=== PATIENT | male | born 1990 | race Caucasian/White ===

== ENCOUNTER 2022-01-30 09:38 | Emergency (ER) | payer BC, SELFPAY ==
[2022-01-30 09:54] VITALS: BP 117/83; PULSE 84; RESP 16; TEMP 37.1; O2SAT 99
--- NOTE | 2022-01-30 10:18 | ED.GENADULT ---
HPI - General Adult General Chief complaint: Medical Clearance Stated complaint: HPB Time Seen by Provider: 01/30/22 10:15 Source: patient, RN notes reviewed and old records reviewed Mode of arrival: ambulatory Limitations: no limitations History of Present Illness HPI narrative: 31-year-old male who presents to 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 Patient denies any headaches, no shortness of breath or any chest pain, denies any visual disturbances does wear glasses. He has appointment with his medical doctor on Thursday to discuss his blood pressure and possible see if he thinks he should be on medication for his blood pressure. Patient does smoke cigarettes of 1/2-1 pack per day and he is obese with BMI of 40. MD complaint: Blood pressure evaluation Associated symptoms: denies other symptoms Treatments prior to arrival: none Related Data Home Medications Medication Instructions Recorded Confirmed No Home Medications 01/30/22 01/30/22 Allergies Allergy/AdvReac Type Severity Reaction Status Date / Time No Known Allergies Allergy Unverified 06/27/20 14:17 PEPPERS Allergy Mild Uncoded 06/27/20 14:17 Review of Systems Review of Systems: CONSTITUTIONAL: Denies fever, chills, or sweats. EYES: Denies visual changes, redness, or discharge. ENT: Denies rhinorrhea, congestion, sore throat, or otalgia. CARDIOVASCULAR: Denies chest pain, palpitations, or edema. RESPIRATORY: Denies cough or dyspnea. GASTROINTESTINAL: Denies abdominal pain, nausea, vomiting, or diarrhea. GENITOURINARY: Denies dysuria or hematuria. SKIN: Denies rash or itching. MUSCULOSKELETAL: Denies back pain, joint pain, or myalgia. NEUROLOGIC: Denies headache, numbness, or weakness. PSYCHIATRIC: Denies anxiety or depression. All systems reviewed & are unremarkable except as noted in HPI and below PMFSH Past Medical History Medical History (Updated 01/30/22 @ 10:44 by Sheyla Choi NP) Elevated blood pressure reading without diagnosis of hypertension Fracture of right ankle Gout Surgical History Surgical History History of placement of ear tubes Family History Family History Grandparent Acute myocardial infarction Social History Social History (Updated 01/30/22 @ 22:12 by Sheyla Choi NP) Smoking status: Current every day smoker Tobacco type: cigarettes Alcohol intake: current Alcohol use details: social Substance use: never Living arrangements: with family Gender identity (if verbalized by the patient): Male Comments At time of signature, agree with nursing past medical, surgical, social and family history. There is no relevant family history pertinent to the presenting complaint Exam Narrative: GENERAL: Well-appearing, well-nourished, obese and in no acute distress. HEAD: Normocephalic, atraumatic. EYES: PERRLA and EOMI. ENT: Nares clear, no rhinorrhea or epistaxis. Mucous membranes moist.TM's normal with good light reflex, throat normal with no tonsil enlargement NECK: Supple.no lymphadenopathy CHEST: Clear to auscultation. No respiratory distress.SAO2 99% on room air HEART: Regular rate and rhythm. No murmur heard. Normal peripheral pulses. ABDOMEN: Soft, nontender, nondistended, normal active bowel sounds. EXTREMITIES: Normal range of motion. No edema noted SKIN: Warm, dry, no rash. NEURO: No focal deficits. Alert and oriented x3. Course Course Level of Care: Express Care Visit Vital Signs Vital signs: Vital Signs Temperature 37.1 C 01/30/22 09:54 Pulse Rate 84 01/30/22 09:54 Respiratory Rate 16 01/30/22 09:54 Blood Pressure 117/83 01/30/22 09:54 Pulse Oximetry
== END 2022-01-30 10:50 | disposition home or self-care (01) ==
PROVIDERS: Emergency Provider Registered Nurse; PCP Family Medicine
DX: Z01.30 Encounter for examination of blood pressure without abnormal findings (principal); M10.9 Gout, unspecified; F17.210 Nicotine dependence, cigarettes, uncomplicated
CPT/HCPCS: 99211; G0463

== ENCOUNTER 2022-03-05 10:06 | Emergency (ER) | payer BC, SELFPAY ==
[2022-03-05 10:18] VITALS: BP 127/69; PULSE 96; RESP 18; TEMP 36.3; O2SAT 98
--- NOTE | 2022-03-05 10:20 | ED.EAR ---
HPI - Ear Problem General Chief complaint: Ear Stated complaint: lt ear discomfort Time Seen by Provider: 03/05/22 10:20 Source: patient Mode of arrival: ambulatory Limitations: no limitations History of Present Illness HPI Narrative: 31-year-old male presents with complaint of left ear pain since yesterday. Reports that he has had intermittent dizziness since pain started. Denies all URI symptoms. Also reports over the last week he has had nausea, vomiting and diarrhea that is improving. Is still having some nausea. States his son and ex- are both sick with the GI bug. No recent fever. Systems reviewed and negative except as noted above. Related Data Home Medications Medication Instructions Recorded Confirmed lisinopril-hydrochlorothiazide 1 tablet PO DAILY 03/05/22 03/05/22 Allergies Allergy/AdvReac Type Severity Reaction Status Date / Time No Known Allergies Allergy Verified 03/05/22 10:23 PEPPERS Allergy Mild Uncoded 03/05/22 10:23 Review of Systems Review of Systems: CONSTITUTIONAL: Denies fever, chills, or sweats. EYES: Denies visual changes, redness, or discharge. ENT: Denies rhinorrhea, congestion, sore throat. Reports left ear pain. CARDIOVASCULAR: Denies chest pain, palpitations, or edema. RESPIRATORY: Denies cough or dyspnea. GASTROINTESTINAL: Denies abdominal pain. Reports nausea, vomiting, or diarrhea. GENITOURINARY: Denies dysuria or hematuria. SKIN: Denies rash or itching. MUSCULOSKELETAL: Denies back pain, joint pain, or myalgia. NEUROLOGIC: Denies headache, numbness, or weakness. PSYCHIATRIC: Denies anxiety or depression. All other systems reviewed are negative, except as documented in HPI. [facility] Past Medical History Medical History (Updated 03/05/22 @ 10:30 by Andreia Dean NP) Elevated blood pressure reading without diagnosis of hypertension Fracture of right ankle Gout Surgical History Surgical History History of placement of ear tubes Family History Family History Grandparent Acute myocardial infarction Social History Social History (Updated 01/30/22 @ 22:12 by Sheyla Choi NP) Smoking status: Current every day smoker Tobacco type: cigarettes Alcohol intake: current Alcohol use details: social Substance use: never Gender identity (if verbalized by the patient): Male Comments At time of signature, agree with nursing past medical, surgical, social and family history. There is no relevant family history pertinent to the presenting complaint. Exam Narrative: GENERAL: This is a well-nourished, well-developed patient, in no apparent distress. HEAD: normocephalic, atraumatic. EYES: PERRL. Sclera clear/white. Vision is grossly intact. EARS: External ears normal, auditory canals clear and without drainage. TM normal. Left TM erythematous and retracted. No TM perforation. NOSE: External nose normal with no obvious nasal discharge, nares without redness, no rhinorrhea. THROAT: Mucous membranes moist, posterior pharynx clear. NECK: Neck supple, non-tender without lymphadenopathy, masses or thyromegaly. CARDIOVASCULAR: Regular rate and rhythm without murmurs, gallops, or rubs. RESPIRATORY: Clear to auscultation. Breath sounds equal bilaterally. No wheezes, rales, or rhonchi. GASTROINTESTINAL: Abdomen soft, non-tender, nondistended. Bowel sounds are active. No hepato-splenomegaly, or palpable masses. No guarding. SKIN: warm, Dry, intact with no suspicious lesions or rash, good texture and turgor. NEURO: awake, alert, and oriented to person, place and time. There were no obvious focal neurologic abnormalities. EXTREMITIES: Normal range of motion all extremities. . Course Course Level of Care: Express Care Visit Vital Signs Vital signs: Vital Signs Temperature 36.3 C L 03/05/22 10:18 Pulse Rate 96 03/05/22 10:18 Respiratory Ra
== END 2022-03-05 10:32 | disposition home or self-care (01) ==
PROVIDERS: Emergency Provider Nurse Practitioner Family; PCP Family Medicine
DX: H66.92 Otitis media, unspecified, left ear (principal); M10.9 Gout, unspecified
CPT/HCPCS: 99213; G0463

== ENCOUNTER 2022-04-10 14:41 | Outpatient (CLI) | payer BC, SELFPAY ==
[2022-04-10 15:49] LABS: Hemoglobin A1C 5.9 % (<5.7)
== END 2022-04-10 14:42 | disposition home or self-care (01) ==
LOC: ANHLAB 14:44
PROVIDERS: PCP Family Medicine; Visit Provider Family Medicine
DX: Z13.1 Encounter for screening for diabetes mellitus (principal)
CPT/HCPCS: 36415; 83036

== ENCOUNTER 2023-03-23 09:17 | Emergency (ER) | payer BC, SELFPAY ==
[2023-03-23 09:27] VITALS: BP 148/99; PULSE 79; RESP 18; TEMP 36.6; O2SAT 97
--- NOTE | 2023-03-23 09:30 | ED.EAR ---
HPI - Ear Problem General Chief complaint: Ear Stated complaint: lt ear pain Time Seen by Provider: 03/23/23 09:33 Source: patient Mode of arrival: ambulatory Limitations: no limitations History of Present Illness HPI Narrative: 32 y/o male presented for c/o left ear pain, onset last night. Also reports he developed nasal congestion last night which he relates to allergies. Endorses hearing is 'muffled' and states he may have had drainage from the ear. Pain is rated 7-10/10. Reports the pain has spread across forehead as a headache. Denies tinnitus or dizziness, n/v/d/f/c. Patient has not taken meds [employer] for pain. MD Complaint: ear pain Related Data Home Medications Medication Instructions Recorded Confirmed lisinopril 20 1 tablet PO DAILY 03/05/22 03/23/23 mg-hydrochlorothiazide 25 mg tablet Allergies Allergy/AdvReac Type Severity Reaction Status Date / Time capsaicin Allergy Unknown Verified 03/23/23 09:32 PEPPERS Allergy Mild Unknown Uncoded 03/23/23 09:32 Review of Systems Review of Systems: CONSTITUTIONAL: Denies malaise, chills, or fever. EYES: Denies visual changes, redness, or discharge. ENT: Denies sore throat. Reports ear pain, rhinorrhea, congestion CARDIOVASCULAR: Denies chest pain, palpitations, or edema. RESPIRATORY: Denies cough or dyspnea. GASTROINTESTINAL: Denies abdominal pain, nausea, vomiting, diarrhea SKIN: Denies rash or itching. MUSCULOSKELETAL: Denies myalgia. NEUROLOGIC: Reports headache. All systems reviewed & are unremarkable except as noted in HPI and below PMFSH Past Medical History Medical History Elevated blood pressure reading without diagnosis of hypertension Fracture of right ankle Gout Surgical History Surgical History History of placement of ear tubes Family History Family History Grandparent Acute myocardial infarction Social History Social History Smoking status: Current every day smoker Tobacco type: cigarettes Alcohol intake: current Alcohol use details: social Substance use: never Living arrangements: with family Gender identity (if verbalized by the patient): Male Comments At time of signature, agree with nursing past medical, surgical, social and family history. There is no relevant family history pertinent to the presenting complaint Exam Narrative: GENERAL: mildly ill-appearing, no acute distress. HEAD: Normocephalic EYES: PERRLA, conjunctivae clear ENT: Nares clear. Mucous membranes moist. Right TM mildly erythematous with dull light reflex; Left canal erythematous and swollen, not stenotic, mild drainage. Unable to fully visualize TM r/t swelling; visualized portion appears dull. Left tragal tenderness. NECK: Supple. No lymphadenopathy CHEST: Clear to auscultation, breath sounds equal. No wheezing, rhonchi, rales, or stridor. No respiratory distress, speaks in full sentences. HEART: Regular rate and rhythm. No murmur heard. SKIN: Warm, dry, no rash. NEURO: Alert and oriented x3. PSYCH: Normal mood and affect Course Course Emergency Course: Patient is aware of diagnosis, understands and agrees to treatment plan. Anticipatory guidance given. Patient agrees to follow-up as directed and is aware of reasons to seek care at the emergency department. Portions of this record may have been created with voice recognition software Level of Care: Express Care Visit Vital Signs Vital signs: Vital Signs Temperature 97.8 F 03/23/23 09:27 Pulse Rate 79 03/23/23 09:27 Respiratory Rate 18 03/23/23 09:27 Blood Pressure 148/99 H 03/23/23 09:27 Pulse Oximetry 97 03/23/23 09:27 Oxygen Delivery Room Air 03/23/23 09:27 Temperature 97.8 F 03/23/23 09:27 Pulse Rate 79 03/23/23 09:27 Respirator
== END 2023-03-23 09:47 | disposition home or self-care (01) ==
PROVIDERS: Emergency Provider Nurse Practitioner Family; PCP Family Medicine
DX: H60.92 Unspecified otitis externa, left ear (principal); R03.0 Elevated blood-pressure reading, without diagnosis of hypertension; F17.210 Nicotine dependence, cigarettes, uncomplicated; M10.9 Gout, unspecified
CPT/HCPCS: 99213; G0463

== ENCOUNTER 2024-09-26 08:00 | Emergency (ER) | payer BC, SELFPAY ==
[2024-09-26 08:13] VITALS: BP 149/96; PULSE 77; RESP 18; TEMP 36.3; O2SAT 97
--- NOTE | 2024-09-26 08:28 | ED.URI ---
HPI - URI/Sore Throat General Chief Complaint: Upper Respiratory Infection Stated Complaint: LT Ear / congestion / cough / fever Time Seen by Provider: 09/26/24 08:20 Source: patient and RN notes reviewed Mode of arrival: ambulatory Limitations: no limitations History of Present Illness HPI Narrative: Patient presents today complaining of a 3 day history of chest congestion, mild cough, left ear clogging. Denies fever or sore throat. He has been taking DayQuil with mild relief and is currently pain-free Related Data Home Medications Medication Instructions Recorded Confirmed lisinopril 20 1 tablet PO DAILY 03/05/22 09/26/24 mg-hydrochlorothiazide 25 mg tablet Allergies Allergy/AdvReac Type Severity Reaction Status Date / Time capsaicin AdvReac Mild Rash Verified 09/26/24 08:07 PEPPERS AdvReac Mild Rash Uncoded 09/26/24 08:07 Review of Systems Review of Systems: CONSTITUTIONAL: Denies body aches, fever, chills, or sweats. EYES: Denies visual changes, redness, or discharge. ENT: Denies rhinorrhea, congestion, sore throat, or otalgia.+ left ear clogging CARDIOVASCULAR: Denies chest pain, palpitations, or edema. RESPIRATORY: Denies dyspnea.+ cough, chest congestion GASTROINTESTINAL: Denies abdominal pain, nausea, vomiting, or diarrhea. GENITOURINARY: Denies dysuria or hematuria. SKIN: Denies rash, itching, or wounds. MUSCULOSKELETAL: Denies back pain, joint pain, or myalgia. NEUROLOGIC: Denies headache, numbness, tingling, or weakness. PSYCH: Denies depression or anxiety. [facility] Past Medical History Medical History Elevated blood pressure reading without diagnosis of hypertension Fracture of right ankle Gout Surgical History Surgical History History of placement of ear tubes Family History Family History Grandparent Acute myocardial infarction Social History Social History Smoking status: Current every day smoker Tobacco type: cigarettes Alcohol intake: current Alcohol use details: social Substance use: never Living arrangements: with family Gender identity (if verbalized by the patient): Male Comments At time of signature, I have reviewed and agree with nursing past medical, surgical, social and family history unless otherwise noted. Please see nursing chart for further information. There is no relevant family history pertinent to the presenting complaint Exam Narrative: GENERAL: Well-appearing, well-nourished, and in no acute distress. HEAD: Normocephalic, atraumatic. EYES: EOMI. No redness or drainage. Conjunctivae normal. ENT: Mucous membranes pink and moist. Nares clear. No rhinorrhea. Right TM normal. Left TM erythematous and dull. Throat normal. Uvula midline. NECK: Normal AROM. Supple. No lymphadenopathy. CHEST: No respiratory distress. Clear to auscultation. HEART: Regular rate and rhythm. No murmur appreciated. EXTREMITIES: Normal range of motion. No edema. SKIN: Warm, dry, no rash. Capillary refill normal. Normal skin turgor. NEURO: No focal deficits. Alert and oriented x3. Gait steady. PSYCH: Normal affect. No signs of depression or anxiety. Course Course Level of Care: Express Care Visit Vital Signs Vital signs: Vital Signs Temperature 97.4 F L 09/26/24 08:13 Pulse Rate 77 09/26/24 08:13 Respiratory Rate 18 09/26/24 08:13 Blood Pressure 149/96 H 09/26/24 08:13 Pulse Oximetry 97 09/26/24 08:13 Oxygen Delivery Room Air 09/26/24 08:13 Temperature 97.4 F L 09/26/24 08:13 Pulse Rate 77 09/26/24 08:13 Respiratory Rate 18 09/26/24 08:13 Blood Pressure 149/96 H 09/26/24 08:13 Pulse Oximetry 97 09/26/24 08:13 Oxygen Delivery Room Air 09/26/24 08:13 Reviewed MDM - URI/Sore Throat MDM Narrative Medical decision making narrative: Patient will be treated with a course of amoxicillin for left otitis media. Remainder of symptoms are likely viral in etiology. Discussed [id number] medication use and duration of illness. Anticipatory guidance given Differential Diagnosis Differential diagnosis: Likely upper respiratory infection, otitis media, viral infection and other (Otitis externa, ruptured TM, serous otitis, cerumen impaction) Critical Care Time Critical Care Time Critical Care Time: No Discharge Plan Discharge Clinical Impression: Acute left otitis media Upper respiratory infection Qualifiers: URI type: unspecified URI Qualified Code(s): J06.9 - Acute upper respiratory infection, unspecified Patient Disposition: Home, Self-Care Condition: Stable Instructions: Ear Infection (GEN) Additional Instructions: Please take the amoxicillin as prescribed until gone. Take Tylenol or ibuprofen for pain if needed. The remainder of symptoms are likely due to a viral illness, which is not treated with antibiotics. Virus symptoms can last for up to 7-10days. Rest and stay hydrated. Follow up with your PCP in 7 days if symptoms are not improving. Go to the ER immediately if you develop shortness of breath, difficulty swallowing, or any other concerning symptoms. Your blood pressure was elevated above 120/80 today at Urgent Care. This puts you above the threshold for follow up. Please schedule a followup visit with your personal physician as soon as possible, for further evaluation and treatment. Even blood pressure exceeding 120/80 may indicate pre-hypertension. Prescriptions: New amoxicillin 875 mg tablet 875 mg PO Q12H 7 Days Qty: 14 0RF No Action lisinopril-hydrochlorothiazide 20-25 mg tablet 1 tablet PO DAILY Follow-up/Referrals: Driss Huynh MD [Primary Care Provider] - Time of Disposition: 08:33
== END 2024-09-26 08:35 | disposition home or self-care (01) ==
PROVIDERS: Emergency Provider Nurse Practitioner; PCP Family Medicine
DX: H66.92 Otitis media, unspecified, left ear (principal); J06.9 Acute upper respiratory infection, unspecified; F17.210 Nicotine dependence, cigarettes, uncomplicated; M10.9 Gout, unspecified
CPT/HCPCS: 99213; G0463